=== PATIENT | female | born 1990 | race Caucasian/White ===

== ENCOUNTER 2017-01-19 12:28 | Outpatient (CLI) | payer OTHER ==
[~2017-01-19] VITALS: Ht 157.5 cm; Wt 95.9 kg
[~2017-01-19 12:28] MED LIST: ACHYD1T PO; CTRZ10T PO; DCS100C PO; Diltiazem Hcl PO; Docusate Sodium PO; IBP800T PO; Ibuprofen PO; METO-272 PO; MTP50T PO; Magnesium Oxide PO; PREN1TAB39 PO
[2017-01-19] MEDS ORDERED: PREN-142 PO (12:41)
[2017-01-19] MEDS ORDERED: CETI10TA20 PO (12:41)
[2017-01-19] MEDS ORDERED: LORA10TA76 PO (12:41)
[2017-01-19 12:43] VITALS: BP 145/96
[2017-01-19 13:28] LABS: PROTEIN/CREATININE RATIO 0.23
== END 2017-01-19 14:02 | disposition home or self-care (01) ==
LOC: PREOP 12:28
PROVIDERS: ATTEND Obstetrics & Gynecology
DX: Z01.818 Encounter for other preprocedural examination (principal); O34.219 Maternal care for unspecified type scar from previous cesarean delivery; Z3A.00 Weeks of gestation of pregnancy not specified
CPT/HCPCS: 82570; 84156; 87081

== ENCOUNTER 2017-01-20 09:50 | Inpatient (IN) | payer OTHER ==
[~2017-01-20] VITALS: Ht 157.5 cm; Wt 94.3 kg
[~2017-01-20 09:50] MED LIST changes: +CETI10TA20 PO; +LORA10TA76 PO; +PREN-142 PO
--- OUTSIDE RECORDS SUMMARY | 2017-01-20 10:22 | XMS REPORT | Clinical Summary ---
Author Author [facility] Organization [facility] Address Unknown Phone Unavailable Care Team Providers Care Procurement Accountant Name Role Phone PCP Unavailable Source Comments Some departments are not documenting in the electronic medical record. If you do not see the information that you expected, contact Release of Information in the Health Information Management department at [phone] for further assistance in locating additional records.[facility] Allergies No Known Allergies Current Medications Prescription Sig. Disp. Refills Start End Date Status Date acetaminophen (TYLENOL) Take 325 mg by mouth Active 325 mg tablet every 4 hours as needed. CETIRIZINE HCL (ZYRTEC Take by mouth. Active PO) montelukast (SINGULAIR) Take 10 mg by mouth at Active 10 mg tablet bedtime daily. aspirin EC 81 mg tablet Take 81 mg by mouth Active daily. Active Problems Problem Noted Date PSVT (paroxysmal supraventricular tachycardia) ([facility]) 06/08/2014 Overview: 06/20/[address] Bruce: Symptomatic PSVT: She has dramatic life style limiting symptoms from her arrhythmias and side effects from her medications. Pt. opting for ablation as treatment choice. 08/16/14 Successful RFA of left lateral accessroy pathway Palpitations 06/08/2014 Overview: 05/05/14: Pt. continues to have palpitations. She reports that her palpitations have improved since giving on 03/28/14. During , she reports palpitations 3-5x/week which usually last about 5-15 seconds, one episode lasting about 10 minutes. No c/o chest pain, syncope and dyspnea. Screening for cardiovascular condition 06/08/2014 Overview: 03/29/11: ECOD: Normal 2 dimensional echo color flow doppler study. LVEF 62% Scoliosis 06/08/2014 Family History Medical History Relation Name Comments Diabetes Father Heart Disease Father Hypertension Father Heart Disease Mother Hypertension Mother Relation Name Status Comments Father Mother Social History Tobacco Use Types Packs/Day Years Used Date Never Smoker Smokeless Tobacco: Never Used Alcohol Use Drinks/Week oz/Week Comments No Sex Assigned at Date Recorded Not on file Last Filed Vital Signs Vital Sign Reading Time Taken Blood Pressure 106/72 04/03/2015 1:07 PM OCCUPATIONAL THERAPIST REHAB MANAGER Pulse 70 04/03/2015 1:07 PM OCCUPATIONAL THERAPIST REHAB MANAGER Temperature 36.7 C (98.1 F) 08/17/2014 8:44 AM CDT Respiratory Rate - - Oxygen Saturation 98% 08/17/2014 3:45 AM CDT Inhaled Oxygen - - Concentration Weight 82.2 kg (181 lb 3.2 oz) 04/03/2015 1:07 PM OCCUPATIONAL THERAPIST REHAB MANAGER Height 157.5 cm (5' 2") 04/03/2015 1:07 PM OCCUPATIONAL THERAPIST REHAB MANAGER Body Mass Index 33.14 04/03/2015 1:07 PM OCCUPATIONAL THERAPIST REHAB MANAGER Plan of Treatment Health Maintenance Due Date Last Done Comments PHYSICAL (COMPREHENSIVE) 02/13/1996 EXAM PERTUSSIS VACCINE 02/13/2000 TETANUS VACCINE 2006 CERVICAL CANCER SCREENING 2010 INFLUENZA VACCINE 01/18/2017 HPV VACCINES Aged Out No longer eligible based on patient's age to complete this topic Results Not on filefrom Last 3 Months
--- OUTSIDE RECORDS SUMMARY | 2017-01-20 10:22 | XMS REPORT | Continuity of Care Document ---
Author Author [facility] Organization [facility] Address Unknown Phone Unavailable Allergies Active Description Code Type Severity Reaction Onset Reported/Identified Relationship to Patient Clinical Status Yes No Known Drug Allergies [id number] Drug Allergy Unknown N/ A 03/28/2011 Medications Problems Date Dx Coded Attending Type Code Diagnosis Diagnosed By 03/31/2011 Ot 427.89 CARDIAC DYSRHYTHMIAS NEC 03/31/2011 Ot 648.61 CV DIS NEC PREG-DELIVER 03/31/2011 Ot 648.91 OTH CURR COND-DELIVERED 03/31/2011 Ot 652.81 MALPOSITION NEC-DELIVER 03/31/2011 Ot 661.21 UTERINE INERT NEC-DELIV 03/31/2011 Ot V02.51 GROUP B STREPT CARRIER/SUSPECTED CARRIER 03/31/2011 Ot V27.0 DELIVER-SINGLE LIVEBORN 10/09/2013 CLAIRE GOODMAN PRODUCTION CONTROL CLERK Ot 646.83 PREG COMPL NEC-ANTEPART 10/09/2013 CLAIRE GOODMAN PRODUCTION CONTROL CLERK Ot 789.00 ABDOMINAL PAIN, UNSPECIFIED SITE 02/05/2014 LANDY GALINDO MD Ot 427.0 PAROX ATRIAL TACHYCARDIA 02/05/2014 LANDY GALINDO MD Ot 648.63 CV DIS NEC-ANTEPARTUM 02/05/2014 ZEYNEP ZAMORA DO Ot 427.89 CARDIAC DYSRHYTHMIAS NEC 02/05/2014 ZEYNEP ZAMORA DO Ot 648.63 CV DIS NEC-ANTEPARTUM 03/30/2014 SINGH MINA MD Ot 427.0 PAROX ATRIAL TACHYCARDIA 03/30/2014 SINGH MINA MD Ot 648.61 CV DIS NEC PREG-DELIVER 03/30/2014 SINGH MINA MD Ot 654.21 PREV DELIVRY W/ OR W/O MENT ANT 03/30/2014 SINGH MINA MD Ot 737.30 IDIOPATHIC SCOLIOSIS 03/30/2014 SINGH MINA MD Ot V06.1 [id number], COMBINED [ 03/30/2014 LEOPOLDO WONG, SINGH Juarez Ot V27.0 DELIVER-SINGLE LIVEBORN 04/17/2014 LEOPOLDO WONG, SINGH Juarez Ot 285.9 04/17/2014 LEOPOLDO WONG, SINGH Juarez Ot 427.89 04/17/2014 LEOPOLDO WONG, SINGH Juarez Ot 648.23 04/17/2014 LEOPOLDO WONG, SINGH Juarez Ot 648.63 04/17/2014 LEOPOLDO WONG, SINGH Juarez Ot 654.23 04/17/2014 LEOPOLDO WONG, SINGH Juarez Ot V72.63 04/17/2014 LEOPOLDO WONG, SINGH Juarez Ot V74.8 05/26/2014 Ot 626.4 05/26/2014 Ot 736.81 05/26/2014 Ot 737.30 05/26/2014 Ot 787.3 05/26/2014 Ot 788.63 05/26/2014 Ot V72.62 05/26/2014 MICHEAL MCCOY SENIOR INFORMATION SYSTEMS ARCHITECT Ot 278.00 05/26/2014 MICHEAL MCCOY SENIOR INFORMATION SYSTEMS ARCHITECT Ot V72.62 05/26/2014 JOSE MIGUEL WONG, EMILY Gonzalez Ot 626.9 05/26/2014 BON WONG [facility] CCDS Ot 427.0 05/26/2014 BON WONG [facility] CCDS Ot 785.1 05/26/2014 LEOPOLDO WONG, SINGH Juarez Ot 285.9 05/26/2014 LEOPOLDO WONG, SINGH Juarez Ot 427.89 05/26/2014 LEOPOLDO WONG, SINGH Juarez Ot 648.23 05/26/2014 LEOPOLDO WONG, SINGH Juarez Ot 648.63 05/26/2014 LEOPOLDO WONG, SINGH Juarez Ot 654.23 05/26/2014 LEOPOLDO WONG, SINGH Juarez Ot V72.63 05/26/2014 LEOPOLDO WONG, SINGH Juarez Ot V74.8 02/03/2016 Ot 626.4 IRREGULAR MENSTRUATION 02/03/2016 Ot 736.81 UNEQUAL LEG LENGTH 02/03/2016 Ot 737.30 IDIOPATHIC SCOLIOSIS 02/03/2016 Ot 787.3 FLATUL/ERUCTAT/GAS PAIN 02/03/2016 Ot 788.63 URGENCY OF URINATION 02/03/2016 Ot V72.62 LAB EXAM ORDERED PART OF A ROUTINE GE 02/03/2016 MICHEAL MCCOY SENIOR INFORMATION SYSTEMS ARCHITECT Ot 278.00 OBESITY, NOS 02/03/2016 MICHEAL MCCOY SENIOR INFORMATION SYSTEMS ARCHITECT Ot V72.62 LAB EXAM ORDERED PART OF A ROUTINE GE 02/03/2016 EMILY GILLESPIE MD Ot 626.9 MENSTRUAL DISORDER NOS 02/03/2016 BON WONG FAC, ALI OLEG CCDS Ot 427.0 PAROX ATRIAL TACHYCARDIA 02/03/2016 BON WONG FACWill, ALI OLEG CCDS Ot 785.1 PALPITATIONS 02/03/2016 SINGH MINA MD Ot 285.9 ANEMIA NOS 02/03/2016 SINGH MINA MD Ot 427.89 CARDIAC DYSRHYTHMIAS NEC 02/03/2016 SINGH MINA MD Ot 648.23 ANEMIA-ANTEPARTUM 02/03/2016 SINGH MINA MD Ot 648.63 CV DIS NEC-ANTEPARTUM 02/03/2016 SINGH MINA MD Ot 654.23 PREV DELIVERY, ANTEPARTUM COND 02/03/2016 SINGH MINA MD Ot V72.63 PRE-PROCEDURAL LABORATORY EXAMINATION 02/03/2016 SINGH MINA MD Ot V74.8 SCREEN-BACTERIAL DIS NEC 12/19/2016 Ot 626.4 IRREGULAR MENSTRUATION 12/19/2016 Ot 736.81 UNEQUAL LEG LENGTH 12/19/2016 Ot 737.30 IDIOPATHIC SCOLIOSIS 12/19/2016 Ot 787.3 FLATUL/ERUCTAT/GAS PAIN 12/19/2016 Ot 788.63 URGENCY OF URINATION 12/19/2016 Ot V72.62 LAB EXAM ORDERED PART OF A ROUTINE GE 12/19/2016 MICHEAL MCCOY SENIOR INFORMATION SYSTEMS ARCHITECT Ot 278.00 OBESITY, NOS 12/19/2016 MICHEAL MCCOY SENIOR INFORMATION SYSTEMS ARCHITECT Ot V72.62 LAB EXAM ORDERED PART OF A ROUTINE GE 12/19/2016 EMILY GILLESPIE MD Ot 626.9 MENSTRUAL DISORDER NOS 12/19/2016 BON WONG FACC, LILIA DEJESUS CCDS Ot 427.0 PAROX ATRIAL TACHYCARDIA 12/19/2016 LILIA CROCKETT MD, FACC, FACP CCDS Ot 785.1 PALPITATIONS 12/19/2016 SINGH MINA MD Ot 285.9 ANEMIA NOS 12/19/2016 SINGH MINA MD Ot 427.89 CARDIAC DYSRHYTHMIAS NEC 12/19/2016 SINGH MINA MD Ot 648.23 ANEMIA-ANTEPARTUM 12/19/2016 SINGH MINA MD, Ot 648.63 CV DIS NEC-ANTEPARTUM 12/19/2016 SINGH MINA MD Ot 654.23 PREV DELIVERY, ANTEPARTUM COND 12/19/2016 SINGH MINA MD, Ot V72.63 PRE-PROCEDURAL LABORATORY EXAMINATION 12/19/2016 SINGH MINA MD, Ot V74.8 SCREEN-BACTERIAL DIS NEC Procedures Code Description Performed By Performed On 74.1 LOW CERVICAL 03/29/2011 74.1 LOW CERVICAL 03/28/2014 Results Test Result Range Urine protein/creatinine mass ratio - 01/19/17 12:00 Urine protein measurement (mass/volume) 10 mg/dL 6-12 Urine creatinine measurement (mass/volume) 44 mg/dL 30-125 Urine protein/creatinine mass ratio 0.23 NRG Encounters ACCT No. Visit Date/Time Discharge Status Pt. Type Provider Facility Loc./Unit Complaint [id number] 03/28/2014 11:00:00 2013 13:35:00 DIS Inpatient SINGH MINA MD [facility] WS PREVIOUS ; SUPRAVENTRICULAR TACHY [id number] 03/27/2014 12:00:00 2013 23:59:59 CLS Preadmit SINGH MINA MD [facility] PREOP [id number] 03/27/2014 08:53:00 2013 23:59:59 CLS Outpatient SINGH MINA MD [facility] PREOP PREVIOUS SECTION; SUPRAVENTRICULAR TACHY [id number] 02/05/2014 13:23:00 2013 15:25:00 DIS Outpatient ZEYNEP ZAMORA DO S [facility] WSo SVT EPISODE [id number] 02/05/2014 11:21:00 2013 12:55:00 DIS Emergency LANDY GALINDO MD [facility] ER SVT EPISODE [id number] 10/09/2013 21:26:00 2013 23:10:00 DIS Emergency CLAIRE GOODMAN PRODUCTION CONTROL CLERK [facility] ER PREG 14 WEEKS CRAMPING [id number] 08/12/2013 14:44:00 2013 23:59:59 CLS Outpatient BON WONG FACC, LILIA DEJESUS CCDS [facility] LAB PALPITATINS,PVSVT [id number] 09/27/2012 16:19:00 2012 23:59:59 CLS Outpatient EMILY GILLESPIE MD [facility] LAB ABNORMAL VAGINAL BLEEDING [id number] 08/25/2012 16:05:00 2012 23:59:59 CLS Outpatient MICHEAL MCCOY [facility] LAB ROUTINE EXAM [id number] 01/23/2017 07:30:00 SINGH Bernard MD REPEAT C -SECTION [id number] 01/19/2017 12:30:00 SINGH Bernard MD [facility] PREOP [id number] 02/06/2012 08:07:00 Document Registration [id number] 03/28/2011 22:09:00 Document Registration
[2017-01-20 10:25] VITALS: BP 130/73
[2017-01-20] MEDS ORDERED: LACTATED RINGERS 1,000 ML IV PRN (10:43)
[2017-01-20] MEDS ORDERED: CITRIC ACID/SOB CIT (BICITRA) 30 ML UDC PO ONE (10:45)
[2017-01-20] MEDS ORDERED: FAMOTIDINE 20MG/2ML IV (PEPCID) IV ONE (10:45)
[2017-01-20] MEDS ORDERED: CATHETER FLUSH 10 ML SYR IV PRN (10:45)
[2017-01-20] MEDS ORDERED: METOCLOPRAMIDE INJ 10 MG/2 ML (REGLAN) IV ONE (10:45)
[2017-01-20 10:52] LABS: BASOPHILS % (AUTO) 0 % (0-10); EOSINOPHILS # (AUTO) 0.1 10^3/uL (0.0-0.3); EOSINOPHILS % (AUTO) 1 % (0-10); LYMPHOCYTES # (AUTO) 2.2 X 10^3 (1.0-4.0); LYMPHOCYTES % (AUTO) 20 % (12-44); MEAN CORPUSCULAR HEMOGLOBIN 34 PG (25-34); MEAN CORPUSCULAR HGB CONC 34 G/DL (32-36); MEAN CORPUSCULAR VOLUME 98 FL (80-99); MEAN PLATELET VOLUME 11.3 FL (7.4-10.4); MONOCYTES # (AUTO) 0.8 X 10^3 (0.0-1.0); MONOCYTES % (AUTO) 7 % (0-12); NEUTROPHILS # (AUTO) 8.1 X 10^3 (1.8-7.8); NEUTROPHILS % (AUTO) 71 % (42-75); PLATELET COUNT 241 10^3/uL (130-400); RED BLOOD COUNT 3.72 10^6/uL (4.35-5.85); RED CELL DISTRIBUTION WIDTH 13.9 % (10.0-14.5); WHITE BLOOD COUNT 11.3 10^3/uL (4.3-11.0)
[2017-01-20 11:00] VITALS: BP 121/77
[2017-01-20] MEDS ORDERED: metroNIDAZOLE 500MG/100ML IVPB 100 ML ONE (11:05)
[2017-01-20 11:07] LABS: ALANINE AMINOTRANSFERASE 13 U/L (0-55); ALBUMIN 3.5 GM/DL (3.2-4.5); ANION GAP 11 MMOL/L (5-14); ASPARTATE AMINO TRANSFERASE 16 U/L (5-34); BILIRUBIN,TOTAL 0.4 MG/DL (0.1-1.0); BLOOD UREA NITROGEN 8 MG/DL (7-18); BUN/CREATININE RATIO 13; CALCIUM 9.3 MG/DL (8.5-10.1); CARBON DIOXIDE 19 MMOL/L (21-32); CHLORIDE 109 MMOL/L (98-107); CREATININE SERUM 0.62 MG/DL (0.60-1.30); GFR ESTIMATED > 60; GLUCOSE 78 MG/DL (70-105); LACTATE DEHYDROGENASE 255 U/L (125-220); POTASSIUM 3.7 MMOL/L (3.6-5.0); SODIUM 139 MMOL/L (135-145); TOTAL PROTEIN 6.9 GM/DL (6.4-8.2); URIC ACID 4.1 MG/DL (2.6-7.2)
[2017-01-20 11:08] LABS: PROTEIN/CREATININE RATIO 0.19
[2017-01-20] MEDS ORDERED: ceFAZolin 2 GM/50 ML NS 50 ML IV NR ×2 (11:15→12:00)
[2017-01-20] MEDS ORDERED: INFLUENZA TRIvalent 2017-2018 0.5 ML/45 MCG SYR IM ONE (11:15)
[2017-01-20] MEDS ORDERED: metroNIDAZOLE 500MG/100ML IVPB 100 ML IV NR ×2 (11:15→11:45)
[2017-01-20] MEDS: LACTATED RINGERS 1,000 ML IV PRN ×2 (11:16→12:15)
[2017-01-20 11:30] VITALS: BP 137/65
[2017-01-20] MEDS ORDERED: OXYTOCIN/NORMAL SALINE 1,000 ML IV ONE (11:40)
[2017-01-20] MEDS ORDERED: fentaNYL INJECTION 100 MCG/2 ML AMP ONE (11:40)
[2017-01-20] MEDS ORDERED: D5 LR IV SOLUTION 1,000 ML IV SCH (11:44)
[2017-01-20] MEDS ORDERED: D5 LR IV SOLUTION 1,000 ML IV ONE (11:54)
--- NOTE | 2017-01-20 11:56 | History & Physical ---
History and Physical Date Seen by Provider: Jan 20, 2017 Time Seen by Provider: 11:50 38-1/7 weeks gestation with preeclampsia and previous . Patient is also being followed for oligohydramnios. patient's is significant for having group B strep growing in her urine during the . She was seen in clinic on this date. Her blood pressure was 116/90 to the diastolic is elevated fairly significantly over her previous levels. She was also anca every 3-4 minutes. Lab work showed an elevated LDH is concerning for developing preeclampsia. Patient denies rupture membranes or bleeding. He was complaining of suprapubic pain fairly notable with her contractions. She was sent to labor and delivery and has continued to contract in fact her contractions have intensified. This patient has requested removal of her fallopian tubes concurrent with her C- section. She is specifically concerned with her risk for cancer in the pelvic organs particularly that of originating in the fallopian tube. Understands that this will by necessity preclude her of any future childbearing as it will effectively sterilized. This is irrelevant to the patient has her partner has had a vasectomy. We did have a lengthy discussion on more than one occasion in clinic and again today the removal of the fallopian tubes for reduction of risk for cancer later in life. He doesn't wish to proceed with that and it has been consented. allergies are none medications are vitamins Zyrtec and Singulair past medical history, past surgical history, obstetric history, family history, and social histories are per the antepartum record HEENT exam is normal Neck is supple no lymphadenopathy no thyromegaly Abdomen is gravid soft nontender nondistended Extremities show no clubbing cyanosis. There is no Homans sign. Pelvic exam in clinic showed a cervix that was fingertip 70 percent effaced and 0 station vertex presentation at +1 station. NST showed contractions every 3-8 minutes. Currently she anca every 3-4 minutes. She had a reassuring and reactive heart rate pattern. Laboratory Tests Test 01/20/17 10:05 01/20/17 10:25 Range/Units Urine Protein 7 6-12 MG/DL Urine Creatinine 36 30-125 MG/DL Urine Protein/Creatinine Ratio 0.19 White Blood Count 11.3 H 4.3-11.0 10^3/uL Red Blood Count 3.72 L 4.35-5.85 10^6/uL Hemoglobin 12.5 11.5-16.0 G/DL Hematocrit 37 35-52 % Mean Corpuscular Volume 98 80-99 FL Mean Corpuscular Hemoglobin 34 25-34 PG Mean Corpuscular Hemoglobin Concent 34 32-36 G/DL Red Cell Distribution Width 13.9 10.0-14.5 % Platelet Count 241 130-400 10^3/uL Mean Platelet Volume 11.3 H 7.4-10.4 FL Neutrophils (%) (Auto) 71 42-75 % Lymphocytes (%) (Auto) 20 12-44 % Monocytes (%) (Auto) 7 0-12 % Eosinophils (%) (Auto) 1 0-10 % Basophils (%) (Auto) 0 0-10 % Neutrophils # (Auto) 8.1 H 1.8-7.8 X 10^3 Lymphocytes # (Auto) 2.2 1.0-4.0 X 10^3 Monocytes # (Auto) 0.8 0.0-1.0 X 10^3 Eosinophils # (Auto) 0.1 0.0-0.3 10^3/uL Basophils # (Auto) 0.0 0.0-0.1 10^3/uL Sodium Level 139 135-145 MMOL/L Potassium Level 3.7 3.6-5.0 MMOL/L Chloride Level 109 H 98-107 MMOL/L Carbon Dioxide Level 19 L 21-32 MMOL/L Anion Gap 11 5-14 MMOL/L Blood Urea Nitrogen 8 7-18 MG/DL Creatinine 0.62 0.60-1.30 MG/DL Estimat Glomerular Filtration Rate > 60 BUN/Creatinine Ratio 13 Glucose Level 78 70-105 MG/DL Uric Acid 4.1 2.6-7.2 MG/DL Calcium Level 9.3 8.5-10.1 MG/DL Total Bilirubin 0.4 0.1-1.0 MG/DL Aspartate Amino Transf (AST/SGOT) 16 5-34 U/L Alanine Aminotransferase (ALT/SGPT) 13 0-55 U/L Alkaline Phosphatase 100 40-136 U/L Lactate Dehydrogenase 255 H 125-220 U/L Total Protein 6.9 6.4-8.2 GM/DL Albumin 3.5 3.2-4.5 GM/DL Lab work is as noted. Concern is for the elevated LDH. Platelet count is normal liver enzymes are normal. Assessment and plan term at 38-1/7 weeks gestation the patient now with early labor. She also likely has developing preeclampsia based on recent onset of proteinuria and elevation of the diastolic pressure and elevated LDH. is complicated by oligohydramnios. Patient is GBS positive in her urine during this . Patient has requested risk reducing salpingectomy be performed concurrent with the she had been counseled appropriately and has been consented for the procedure and does wish to proceed. 38-1/7 weeks gestation with previous and now in labor. Patient has also developing preeclampsia and has oligohydramnios. Allergies and Home Medications Allergies Coded Allergies: No Known Drug Allergies (Unverified , 01/19/17) Home Medications Cetirizine HCl 10 Mg Tablet, 10 MG PO DAILY, (Reported) Loratadine 10 Mg Tablet, 10 MG PO DAILY, (Reported) Vit No.124/Iron/FA 1 Each Tablet, 1 EACH PO DAILY, (Reported) Clinical Quality Measures DVT/VTE Risk/Contraindication: Risk Factor Score Per Nursin RFS Level Per Nursing on Admit: 1=Low/No VTE PPX SINGH MINA MD Jan 20, 2017 11:56 am
[2017-01-20] MEDS ORDERED: fentaNYL INJECTION 100 MCG/2 ML AMP IVP PRN (12:00)
[2017-01-20] MEDS ORDERED: MEASLES,MUMPS,RUBELLA 1 EA INJ SC ONE (12:00)
[2017-01-20] MEDS ORDERED: TETANUS,DIPTH,PERTUSS P/F (BOOSTRIX) 0.5 ML VIAL IM ONE (12:00)
[2017-01-20] MEDS ORDERED: ONDANSETRON 4 MG/2 ML (SDV) Z0FRAN IVP PRN (13:15)
[2017-01-20] MEDS: OXYTOCIN/NORMAL SALINE 500 ML IV SCH ×2 (13:16→17:45)
[2017-01-20] MEDS: KETOROLAC 30 MG/ML VIAL IVP SCH ×2 (13:17→18:40)
[2017-01-20] MEDS: oxyCODONE/APAP 10/325MG (PERCOCET 10) TABLET PO PRN ×2 (15:51→20:32)
[2017-01-20 16:52] VITALS: BP 121/74
[2017-01-20 20:15] VITALS: BP 123/81
[2017-01-20] MEDS: DOCUSATE SODIUM 100 MG (COLACE) CAP PO SCH (20:26)
[2017-01-21 00:05] VITALS: BP 132/74
[2017-01-21] MEDS: KETOROLAC 30 MG/ML VIAL IVP SCH ×2 (00:13→06:05)
[2017-01-21 04:00] VITALS: BP 128/82
--- NOTE | 2017-01-21 04:37 | OPERATIVE REPORT ---
DATE OF SERVICE: 01/20/2017 PREOPERATIVE DIAGNOSES: 38 and 1 weeks' gestation with previous section in labor and with preeclampsia and with oligohydramnios and with request for bilateral salpingectomy for reduction of cancer risk. POSTOPERATIVE DIAGNOSES: 38 and 1/7th weeks' gestation with previous section in labor and with preeclampsia and with oligohydramnios and with request for bilateral salpingectomy for reduction of cancer risk with pathology pending. PROCEDURE: 1. Repeat low transverse delivery of a viable female infant with Apgars of 8 and 9 at 1 and 5 minutes respectively, weight 8 pounds 4 ounces, time of 12:20 and cord blood pH of 7.32. 2. Bilateral salpingectomies. OPERATIVE DESCRIPTION: With the patient in the supine position and satisfactory spinal anesthesia, she was prepped and draped in the usual fashion for abdominal surgery. A Nixon catheter was placed in the urinary bladder. A repeat Pfannenstiel incision was made through the skin with the scalpel by removing the patient's Pfannenstiel incisional scar. The abdomen was then entered in the usual manner. A bladder retractor placed in position. A clean scalpel was used to make a 4 cm hysterotomy incision transversely across the lower uterine segment. That was extended by blunt dissection. Membranes were ruptured in the process, releasing a small amount of clear fluid. A vigorous viable female was delivered via the uterine incision. The had Apgars of 8 and 9 at 1 and 5 minutes respectively, weight of 8 pounds 4 ounces and cord blood pH was 7.32 with a time of 12:20. The was bulb suctioned on delivery of the head again on completion of delivery. The cord was doubly clamped and cut and the infant passed to Tracey Ba the pediatric nurse in attendance. After cord delivery, cord blood was obtained and the placenta delivered spontaneously Callejas, it was normal, it was a 3 vessel cord. The uterus was exteriorized, the anterior wiped clean with a wet laparotomy sponge. The uterine incision then closed with a running locked suture of 2-0 Vicryl and hemostasis was complete. The right fallopian tube was then removed by fenestrating the mesosalpinx with electrocautery, sealing the vessels in the process. A tie of #1 chromic suture was used on the proximal portion of the fallopian tube, just distal to its attachment to the uterus and then across the fimbria ovarica on the other end. The fallopian tube was then resected and sent to pathology for primary section. The same procedure was performed on the left with the same result. The uterus was now returned to the operative cavity. All blood clot and debris removed from the abdominal cavity. The sponge and needle counts were correct. Hemostasis assured. The anterior parietal peritoneum was closed with a running suture of 2-0 Vicryl and the rectus muscles were closed with that suture as well. The rectus fascia was closed with 2-0 Vicryl, the subcutaneous tissue was closed with 2-0 Vicryl and the skin was stapled. The sponge and needle counts were correct on completion of the procedure. Estimated blood loss was around 500 mL. The patient tolerated the procedure well and was transferred to the recovery room in stable condition. The had been taken stable to the full term nursery under the care of nurse Ba. Job ID: [id number] DocumentID: [id number] Dictated Date: 01/20/2017 12:49:44 Laundry Folder Date: 01/21/2017 04:36:41 Dictated By: SINGH MINA MD
[2017-01-21 05:09] LABS: BASOPHILS % (AUTO) 0 % (0-10); EOSINOPHILS # (AUTO) 0.3 10^3/uL (0.0-0.3); EOSINOPHILS % (AUTO) 3 % (0-10); LYMPHOCYTES # (AUTO) 2.3 X 10^3 (1.0-4.0); LYMPHOCYTES % (AUTO) 21 % (12-44); MEAN CORPUSCULAR HEMOGLOBIN 34 PG (25-34); MEAN CORPUSCULAR HGB CONC 34 G/DL (32-36); MEAN CORPUSCULAR VOLUME 100 FL (80-99); MEAN PLATELET VOLUME 11.1 FL (7.4-10.4); MONOCYTES # (AUTO) 0.9 X 10^3 (0.0-1.0); MONOCYTES % (AUTO) 8 % (0-12); NEUTROPHILS # (AUTO) 7.5 X 10^3 (1.8-7.8); NEUTROPHILS % (AUTO) 68 % (42-75); PLATELET COUNT 214 10^3/uL (130-400); RED BLOOD COUNT 3.21 10^6/uL (4.35-5.85); RED CELL DISTRIBUTION WIDTH 13.7 % (10.0-14.5); WHITE BLOOD COUNT 11.1 10^3/uL (4.3-11.0)
[2017-01-21 05:27] LABS: ALANINE AMINOTRANSFERASE 12 U/L (0-55); ALBUMIN 2.7 GM/DL (3.2-4.5); ANION GAP 8 MMOL/L (5-14); ASPARTATE AMINO TRANSFERASE 16 U/L (5-34); BILIRUBIN,TOTAL 0.4 MG/DL (0.1-1.0); BLOOD UREA NITROGEN 7 MG/DL (7-18); BUN/CREATININE RATIO 12; CALCIUM 8.3 MG/DL (8.5-10.1); CARBON DIOXIDE 20 MMOL/L (21-32); CHLORIDE 110 MMOL/L (98-107); GFR ESTIMATED > 60; GLUCOSE 80 MG/DL (70-105); LACTATE DEHYDROGENASE 187 U/L (125-220); POTASSIUM 3.7 MMOL/L (3.6-5.0); SODIUM 138 MMOL/L (135-145); TOTAL PROTEIN 5.4 GM/DL (6.4-8.2)
--- NOTE | 2017-01-21 07:48 | Progress Note-Standard ---
Standard Progress Note Progress Notes/Assess & Plan Date Seen by Provider: Jan 21, 2017 Time Seen by Provider: 07:46 Progress/Assessment & Plan this patient is without complaint. She is ambulating, voiding, tolerating by mouth well, has good pain control. Denies chest pain, denies shortness of breath, denies nausea vomiting, denies headache. Laboratory Tests Test 01/20/17 10:05 01/20/17 10:25 01/21/17 04:50 Range/Units Urine Protein 7 6-12 MG/DL Urine Creatinine 36 30-125 MG/DL Urine Protein/Creatinine Ratio 0.19 White Blood Count 11.3 H 11.1 H 4.3-11.0 10^3/uL Red Blood Count 3.72 L 3.21 L 4.35-5.85 10^6/uL Hemoglobin 12.5 10.8 L 11.5-16.0 G/DL Hematocrit 37 32 L 35-52 % Mean Corpuscular Volume 98 100 H 80-99 FL Mean Corpuscular Hemoglobin 34 34 25-34 PG Mean Corpuscular Hemoglobin Concent 34 34 32-36 G/DL Red Cell Distribution Width 13.9 13.7 10.0-14.5 % Platelet Count 241 214 130-400 10^3/uL Mean Platelet Volume 11.3 H 11.1 H 7.4-10.4 FL Neutrophils (%) (Auto) 71 68 42-75 % Lymphocytes (%) (Auto) 20 21 12-44 % Monocytes (%) (Auto) 7 8 0-12 % Eosinophils (%) (Auto) 1 3 0-10 % Basophils (%) (Auto) 0 0 0-10 % Neutrophils # (Auto) 8.1 H 7.5 1.8-7.8 X 10^3 Lymphocytes # (Auto) 2.2 2.3 1.0-4.0 X 10^3 Monocytes # (Auto) 0.8 0.9 0.0-1.0 X 10^3 Eosinophils # (Auto) 0.1 0.3 0.0-0.3 10^3/uL Basophils # (Auto) 0.0 0.0 0.0-0.1 10^3/uL Sodium Level 139 138 135-145 MMOL/L Potassium Level 3.7 3.7 3.6-5.0 MMOL/L Chloride Level 109 H 110 H 98-107 MMOL/L Carbon Dioxide Level 19 L 20 L 21-32 MMOL/L Anion Gap 11 8 5-14 MMOL/L Blood Urea Nitrogen 8 7 7-18 MG/DL Creatinine 0.62 0.60 0.60-1.30 MG/DL Estimat Glomerular Filtration Rate > 60 > 60 BUN/Creatinine Ratio 13 12 Glucose Level 78 80 70-105 MG/DL Uric Acid 4.1 2.6-7.2 MG/DL Calcium Level 9.3 8.3 L 8.5-10.1 MG/DL Total Bilirubin 0.4 0.4 0.1-1.0 MG/DL Aspartate Amino Transf (AST/SGOT) 16 16 5-34 U/L Alanine Aminotransferase (ALT/SGPT) 13 12 0-55 U/L Alkaline Phosphatase 100 90 40-136 U/L Lactate Dehydrogenase 255 H 187 125-220 U/L Total Protein 6.9 5.4 L 6.4-8.2 GM/DL Albumin 3.5 2.7 L 3.2-4.5 GM/DL Vital Signs Date Time Temp Pulse Resp B/P (MAP) Pulse Ox O2 Delivery O2 Flow Rate FiO2 01/21/17 04:00 97.5 82 17 128/82 98 Room Air 01/21/17 00:05 98.2 74 18 132/74 97 Room Air 01/20/17 20:15 97.2 72 19 123/81 98 Room Air 01/20/17 16:52 97.2 67 18 121/74 99 Room Air 01/20/17 11:30 77 18 137/65 01/20/17 11:00 74 18 121/77 01/20/17 10:25 76 18 130/73 vital signs are stable. Patient is afebrile. Blood pressures normalized. The abdomen is benign. Fundus is firm below the umbilicus nontender. Incision is clean dry and intact. Extreme show clubbing cyanosis. There is no Homans sign there is slight pretibial pitting edema that is normal. Assessment and plan operative day number 1 status post repeat and bilateral salpingectomy doing well. Plan is for routine convalescence care today and consider discharge home tomorrow SINGH MINA MD Jan 21, 2017 07:48
[2017-01-21] MEDS ORDERED: IBUP-1780 PO (07:49)
[2017-01-21] MEDS ORDERED: DOCU100C37 PO (07:49)
[2017-01-21] MEDS ORDERED: OXYC-465 PO (07:49)
--- NOTE | 2017-01-21 07:50 | Discharge Instructions ---
Discharge Instructions Discharge Medications New, Converted or Re-Newed RX: RX on Chart Patient Instructions Patient Instructions: as directed Return to The Hospital For: as directed Activity & Diet Discharge Diet: No Restrictions Activity as Tolerated: No Orders-Post D/C & Referrals Follow Up Appt: RTC 1 week for incision check. Call to make follow up appt. for patient in 4 weeks. Wound Care: Remove debby, apply benzoin and steri strips. Activity Per routine post instructions. Please call in RX to patient pharmacy. Diet as tolerated Patient may shower or tub bathe as desired. Continue home meds SINGH MINA MD Jan 21, 2017 07:50
[2017-01-21] MEDS: HYDROCORTISONE 2.5% CREAM (ANUSOL-HC) 30 GM TOP SCH (09:00)
[2017-01-21] MEDS: DOCUSATE SODIUM 100 MG (COLACE) CAP PO SCH ×2 (09:55→20:18)
[2017-01-21] MEDS: oxyCODONE/APAP 10/325MG (PERCOCET 10) TABLET PO PRN ×2 (09:55→20:18)
[2017-01-21 10:00] VITALS: BP 125/80
[2017-01-21] MEDS: IBUPROFEN 800 MG (MOTRIN) TAB PO SCH ×2 (12:58→18:45)
--- NOTE | 2017-01-21 14:05 | Anesthesia-Regional Post-Op ---
Regional Patient Condition Mental Status: Alert, Oriented x3 Circulation: Same as Pre-Op Headache: Absent Sensation: Full Recovery Motor Block: Absent Post Op Complications Complications None Follow Up Care/Instructions Patient Instructions None needed. Anesthesia/Patient Condition Patient is doing well, no complaints, stable vital signs, no apparent adverse anesthesia problems. No complications reported per nursing. PATEL ENG CRNA Jan 21, 2017 14:05
[2017-01-21 15:58] VITALS: BP 122/57
[2017-01-21 20:00] VITALS: BP 128/82
[2017-01-22] MEDS: IBUPROFEN 800 MG (MOTRIN) TAB PO SCH ×2 (00:17→08:08)
[2017-01-22 02:00] VITALS: BP 135/78
--- NOTE | 2017-01-22 07:32 | Progress Note-Standard ---
Standard Progress Note Progress Notes/Assess & Plan Date Seen by Provider: Jan 22, 2017 Time Seen by Provider: 07:31 Progress/Assessment & Plan this patient is without complaint. She is ambulating, voiding, tolerating by mouth well, has good pain control. Denies chest pain, denies shortness of breath, denies nausea vomiting, denies headache. Laboratory Tests Test 01/20/17 10:05 01/20/17 10:25 01/21/17 04:50 Range/Units Urine Protein 7 6-12 MG/DL Urine Creatinine 36 30-125 MG/DL Urine Protein/Creatinine Ratio 0.19 White Blood Count 11.3 H 11.1 H 4.3-11.0 10^3/uL Red Blood Count 3.72 L 3.21 L 4.35-5.85 10^6/uL Hemoglobin 12.5 10.8 L 11.5-16.0 G/DL Hematocrit 37 32 L 35-52 % Mean Corpuscular Volume 98 100 H 80-99 FL Mean Corpuscular Hemoglobin 34 34 25-34 PG Mean Corpuscular Hemoglobin Concent 34 34 32-36 G/DL Red Cell Distribution Width 13.9 13.7 10.0-14.5 % Platelet Count 241 214 130-400 10^3/uL Mean Platelet Volume 11.3 H 11.1 H 7.4-10.4 FL Neutrophils (%) (Auto) 71 68 42-75 % Lymphocytes (%) (Auto) 20 21 12-44 % Monocytes (%) (Auto) 7 8 0-12 % Eosinophils (%) (Auto) 1 3 0-10 % Basophils (%) (Auto) 0 0 0-10 % Neutrophils # (Auto) 8.1 H 7.5 1.8-7.8 X 10^3 Lymphocytes # (Auto) 2.2 2.3 1.0-4.0 X 10^3 Monocytes # (Auto) 0.8 0.9 0.0-1.0 X 10^3 Eosinophils # (Auto) 0.1 0.3 0.0-0.3 10^3/uL Basophils # (Auto) 0.0 0.0 0.0-0.1 10^3/uL Sodium Level 139 138 135-145 MMOL/L Potassium Level 3.7 3.7 3.6-5.0 MMOL/L Chloride Level 109 H 110 H 98-107 MMOL/L Carbon Dioxide Level 19 L 20 L 21-32 MMOL/L Anion Gap 11 8 5-14 MMOL/L Blood Urea Nitrogen 8 7 7-18 MG/DL Creatinine 0.62 0.60 0.60-1.30 MG/DL Estimat Glomerular Filtration Rate > 60 > 60 BUN/Creatinine Ratio 13 12 Glucose Level 78 80 70-105 MG/DL Uric Acid 4.1 2.6-7.2 MG/DL Calcium Level 9.3 8.3 L 8.5-10.1 MG/DL Total Bilirubin 0.4 0.4 0.1-1.0 MG/DL Aspartate Amino Transf (AST/SGOT) 16 16 5-34 U/L Alanine Aminotransferase (ALT/SGPT) 13 12 0-55 U/L Alkaline Phosphatase 100 90 40-136 U/L Lactate Dehydrogenase 255 H 187 125-220 U/L Total Protein 6.9 5.4 L 6.4-8.2 GM/DL Albumin 3.5 2.7 L 3.2-4.5 GM/DL Vital Signs Date Time Temp Pulse Resp B/P (MAP) Pulse Ox O2 Delivery O2 Flow Rate FiO2 01/21/17 04:00 97.5 82 17 128/82 98 Room Air 01/21/17 00:05 98.2 74 18 132/74 97 Room Air 01/20/17 20:15 97.2 72 19 123/81 98 Room Air 01/20/17 16:52 97.2 67 18 121/74 99 Room Air 01/20/17 11:30 77 18 137/65 01/20/17 11:00 74 18 121/77 01/20/17 10:25 76 18 130/73 vital signs are stable. Patient is afebrile. Blood pressures normalized. The abdomen is benign. Fundus is firm below the umbilicus nontender. Incision is clean dry and intact. Extreme show clubbing cyanosis. There is no Homans sign there is slight pretibial pitting edema that is normal. Assessment and plan operative day number 1 status post repeat and bilateral salpingectomy doing well. Plan is for routine convalescence care today and consider discharge home tomorrow February 22, 2017 Patient is without complaint. She is ambulating, voiding, tolerating by mouth well, has good pain control. Patient denies chest pain, denies shortness of breath, denies nausea vomiting, denies headache. Vital Signs Date Time Temp Pulse Resp B/P (MAP) Pulse Ox O2 Delivery O2 Flow Rate FiO2 01/22/17 02:00 98.5 78 18 135/78 97 Room Air 01/21/17 20:00 98.4 74 18 128/82 97 Room Air 01/21/17 15:58 97.8 80 17 122/57 100 Room Air 01/21/17 10:00 97.6 69 17 125/80 98 Room Air vital signs are stable. Patient afebrile. Fundus is firm below the umbilicus and nontender. The incision is clean dry and intact. Extremities show no clubbing cyanosis or Homans sign. There is some pretibial pitting edema that is normal. Assessment and plan is operative day number 2 status post repeat doing well. Plan is for discharge home with follow-up in clinic. Final Diagnosis repeat delivery SINGH MINA MD Jan 22, 2017 7:32 am
[2017-01-22 07:55] VITALS: BP 121/83
[2017-01-22] MEDS: DOCUSATE SODIUM 100 MG (COLACE) CAP PO SCH (08:07)
[2017-01-22] MEDS: oxyCODONE/APAP 10/325MG (PERCOCET 10) TABLET PO PRN (08:09)
[2017-01-22] MEDS: HYDROCORTISONE 2.5% CREAM (ANUSOL-HC) 30 GM TOP SCH (09:00)
[2017-01-22] MEDS ORDERED: TETANUS,DIPTH,PERTUSS P/F (BOOSTRIX) 0.5 ML VIAL IM ONE (11:24)
== END 2017-01-22 14:05 | disposition home or self-care (01) | DRG 765 ==
LOC: LDRP 09:50 → WS 13:52
PROVIDERS: ADMIT Obstetrics & Gynecology; ATTEND Obstetrics & Gynecology
PROC: 0UT70ZZ Resection of Bilateral Fallopian Tubes, Open Approach (ICD-10-PCS; 2017-01-20)
PROC: 10D00Z1 Extraction of Products of Conception, Low, Open Approach (ICD-10-PCS; principal; 2017-01-20 11:58)
DX: O14.94 Unspecified pre-eclampsia, complicating childbirth (principal); O41.03X0 Oligohydramnios, third trimester, not applicable or unspecified; O99.824 Streptococcus B carrier state complicating childbirth; O34.211 Maternal care for low transverse scar from previous cesarean delivery; Z3A.38 38 weeks gestation of pregnancy; Z37.0 Single live birth; Z23 Encounter for immunization
CPT/HCPCS: 36415; 80053; 82570; 83615; 84156; 84550; 85025; 86850; 86900; 86901; 90715; 94664

== ENCOUNTER 2018-09-28 14:26 | Outpatient (CLI) | payer OTHER ==
[~2018-09-28] VITALS: Ht 157.5 cm; Wt 70.3 kg
[~2018-09-28 14:26] MED LIST changes: +DOCU100C37 PO; +ESCI10TA PO; +IBUP-1780 PO; +MONT10TA24 PO; +OXYC-465 PO
== END 2018-09-28 14:36 | disposition home or self-care (01) ==
LOC: PREOP 14:26
PROVIDERS: ATTEND Obstetrics & Gynecology
DX: Z01.818 Encounter for other preprocedural examination (principal)